=== PATIENT | female | born 1985 | race Caucasian/White ===

== ENCOUNTER 2016-12-12 12:39 | Inpatient (IN) | payer OTHER ==
[2016-12-12 13:50] VITALS: BMI 24.0
--- NOTE | 2016-12-12 14:43 | HP ---
Admission [facility] Chief Complaint: I AM HERE REHAB FROM HEROIN,COCAINE DEPENDENCE DISCHARGE FROM REHAB AT [facility] Allergies/Adverse Reactions: Allergies Allergy/AdvReac Type Severity Reaction Status Date / Time No Known Allergies Allergy Verified 12/12/16 14:28 History of Present Illness: THIS 31 YEARS OLD FEMALE WITH HEROIN AND COCAINE DEPENDENCE FOR REHAB BIPOLAR DISORDER MIGRAINE HEADACHE LONGEST PERIOD OF SOBRIETY 8 MONTHS - Ebola screening Have you traveled outside of the country in the last 21 days: No Have you had contact with anyone from an Ebola affected area: No Have you been sick,other than usual withdrawal symptoms: No - Review of Systems Constitutional: No Symptoms Reported EENT: reports: No Symptoms Reported Respiratory: reports: No Symptoms reported Cardiac: reports: No Symptoms Reported GI: reports: No Symptoms Reported : reports: No Symptoms Reported Musculoskeletal: reports: No Symptoms Reported Integumentary: reports: No Symptoms Reported Neuro: reports: Headache Endocrine: reports: No Symptoms Reported Hematology: reports: No Symptoms Reported Psychiatric: reports: Judgement Intact, Mood/Affect Appropiate, Orientated x3 ( DISORDER), other Patient History - Patient Medical History Hx Anemia: No Hx Asthma: No Hx Chronic Obstructive Pulmonary Disease (COPD): No Hx Cancer: No Hx Cardiac Disorders: No Hx Congestive Heart Failure: No Hx Hypertension: No Hx Hypercholesterolemia: No Hx Pacemaker: No HX Cerebrovascular Accident: No Hx Seizures: No Hx Dementia: No Hx Diabetes: No Hx Gastrointestinal Disorders: No Hx Liver Disease: No Hx Genitourinary Disorders: No Hx Sexually Transmitted Disorders: Yes (Chlamydia at age 16) Hx Renal Disease (ESRD): No Hx Thyroid Disease: No Hx Human Immunodeficiency Virus (HIV): No (LAST 12/05/16 NEGATIVE) Hx Hepatitis C: No Hx Depression: Yes Hx Suicide Attempt: Yes (2015 OVERDOSE) Hx Bipolar Disorder: Yes (AND ANXIETY) Hx Schizophrenia: No Other Medical History: NO SUICIDAL,NO HOMICIDAL - Patient Surgical History Past Surgical History: Yes Hx Neurologic Surgery: No Hx Cataract Extraction: No Hx Cardiac Surgery: No Hx Lung Surgery: No Hx Breast Surgery: No Hx Breast Biopsy: No Hx Abdominal Surgery: No Hx Appendectomy: Yes (WHEN SHE WAS 25 YRS. OLD LAP) Hx Cholecystectomy: No Hx Genitourinary Surgery: No Hx Section: No Hx Orthopedic Surgery: No Anesthesia Reaction: No - PPD History Previous Implant?: Yes Date: 12/08/15 Results: 0mm PPD to be Administered?: Yes - Reproductive History Patient is a Female of Child Bearing Age (11 -55 yrs old): Yes Last Menstrual Period: 09/20/15 Patient : No - Smoking Cessation Smoking history: Current every day smoker Aproximately how many cigarettes per day: 20 Hx Chewing Tobacco Use: No Initiated information on smoking cessation: Yes 'Breaking Loose' booklet given: 12/12/16 - Substance & Tx. History Hx Alcohol Use: No Hx Substance Use: Yes Substance Use Type: Cocaine, Heroin - Substances Abused Crack Route: Smoking Frequency: Daily Amount used: $40-200 Age of first use: 27 Date of Last Use: 11/23/16 Heroin Route: Injection Frequency: 1-3 times last 30 days Amount used: 2 bags Age of first use: 28 Date of Last Use: 11/20/16 Family Disease History - Family Disease History Family Disease History: Heart Disease: Father (HTN,ALCOHOLIC), Mother (HTN, ALCOHOLIC) Admission Physical Exam S - Vital Signs Vital Signs: Vital Signs - 24 hr 12/12/16 13:47 Temperature 97.1 F L Pulse Rate 88 Respiratory 20 Rate Blood Pressure 123/93 - Physical General Appearance: Yes: Within Normal Limits HEENTM: Yes: Normal ENT Inspection, CORIN, Pharynx Normal Respiratory: Yes: Lungs Clear, Normal Breath Sounds, No Respiratory Distress Neck: Yes: Within Normal Limits Breast: Yes: Breast Exam Deferred Cardiology: Yes: Within Normal Limits, Regular Rhythm, Regular Rate, S1, S2 Abdominal: Yes: Within Normal Limits, Normal Bowel Sounds, Non Tender, Flat, Soft Genitourinary: Yes: Within Normal Limits Back: Yes: Within Normal Limits Musculoskeletal: Yes: Within Normal Limits Extremities: Yes: Within Normal Limits, Normal Capillary Refill, Normal Inspection, Normal Range of Motion 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: Yes: 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 intact, Fully Oriented, Alert, Motor Strength 5/5 Integumentary: Yes: Within Normal Limits Lymphatic: Yes: Within Normal Limits - Diagnostic (1) Bipolar disorder Current Visit: No Status: Chronic Qualifiers: Current episode severity: unspecified (2) Cocaine dependence Current Visit: No Status: Chronic Qualifiers: Substance use status: uncomplicated Qualified Code(s): F14.20 - Cocaine dependence, uncomplicated (3) Opioid dependence Current Visit: No Status: Chronic (4) Nicotine dependence Current Visit: Yes Status: Acute Cleared for Admission S - Detox or Rehab Claeared for Rehab Admission: Yes [facility] Breath Alcohol Content Breath Alcohol Content: 0 Urine Pregancy Test - Result Urine Test Results: Negative- NO Line Present Urine Drug Screen - Results Drug Screen Negative: No Urine Drug Screen Results: BZO-Benzodiazepines
[2016-12-12] MEDS ORDERED: guaiFENesin/D-METHORPHAN HB 10 ML UNIT-DOSE CUPS PO PRN (14:54)
[2016-12-12] MEDS ORDERED: MENTHOL/PHENOL 1 EACH UD MM PRN (14:54)
[2016-12-12] MEDS ORDERED: P-EPHED 60MG/TRIPROLIDI 2.5MG TABLET PO PRN (14:54)
[2016-12-12] MEDS ORDERED: MAG HYDROX/AL HYDROX/SIMETH 30 ML UNIT-DOSE CUP PO PRN (14:54)
[2016-12-12] MEDS ORDERED: MAGNESIUM HYDROX 2400MG/30ML ORAL SUSPENSION 30 ML CUP PO PRN (14:54)
[2016-12-12] MEDS ORDERED: LOPERAMIDE HCL 2 MG CAPSULE PO PRN (14:54)
[2016-12-12] MEDS ORDERED: ACETAMINOPHEN 325 MG TABLET (FP) PO PRN (14:54)
[2016-12-12] MEDS ORDERED: MAGNESIUM CITRATE 300 ML BOTTLE PO PRN (14:54)
[2016-12-12] MEDS ORDERED: TUBERCULIN PPD 5 TU/0.1ML VIAL ID ONE (19:12)
[2016-12-12 19:50] LABS: URINE APPEARANCE CLEAR; URINE BILIRUBIN NEGATIVE (NEGATIVE); URINE BLOOD NEGATIVE (NEGATIVE); URINE COLOR STRAW; URINE GLUCOSE (UA) NEGATIVE (NEGATIVE); URINE KETONE NEGATIVE (NEGATIVE); URINE LEUK ESTERASE NEGATIVE (NEGATIVE); URINE NITRITE NEGATIVE (NEGATIVE); URINE PROTEIN NEGATIVE (NEGATIVE); URINE UROBILINOGEN NEGATIVE E.U./dl (0.2-1.0)
[2016-12-12] MEDS: THIAMINE HCL 100 MG TABLET (FP) PO SCH (21:06)
[2016-12-12] MEDS: diphenhydrAMINE HCL 50 MG CAPSULE PO PRN (21:06)
[2016-12-12] MEDS: VARENICLINE TARTRATE 1 MG TAB PO SCH (21:07)
[2016-12-12] MEDS: IBUPROFEN 400 MG TABLET (FP) PO PRN (21:08)
--- NOTE | 2016-12-13 09:53 | HP ---
Psychiatrist Admission - Data Date of interview: 12/13/16 Admission source: [facility] Identifying data: This is the second admission to [address] [place] [address] for this 31 years old single female childless,residing with parents,unemploeyed,supported by parents. Medical History: unremarkable Psychiatric History: Patient was dx with Bipolar disorder at 22 yo ,started on Depakote 500 mg po bid,Lexapro 20 mg po daily,Xanax 0,5 mg po prn.Reports 1 psychiatric hospitalization in 2014 to [facility] due to DOD.She sees at [facility] on a monthly basis.Last visit was in October 2016 then she was arrested and spent 2 weeks in intermediate.Current medications:Depakote 500 mg po am and 750 mg po hsm,Lexapro 20 mg po daily and Melatonin 10 mg po hs. Physical/Sexual Abuse/Trauma History: denies Vital Signs: Vital Signs - 24 hr 12/12/16 12/12/16 12/13/16 13:47 21:58 00:41 Temperature 97.1 F L 98.1 F Pulse Rate 88 84 Respiratory 20 20 16 Rate Blood Pressure 123/93 145/81 12/13/16 12/13/16 03:30 07:06 Temperature 98.4 F Pulse Rate 76 Respiratory 18 18 Rate Blood Pressure 134/77 Allergies/Adverse Reactions: Allergies Allergy/AdvReac Type Severity Reaction Status Date / Time No Known Allergies Allergy Verified 12/12/16 14:28 Date of last physical exam: 12/12/16 Concur with the findings of this exam: Yes - Substance Abuse/Tx History Hx Alcohol Use: Yes (on and off) Hx Substance Use: Yes (reports heroin since 28 yo,cocaine since 16 ,crack since 27 ,IV cocaine 29 ) Substance Use Type: Alcohol, Cocaine, Heroin Hx Substance Use Treatment: Yes (completed this program in February 2016) - Admission Criteria Previous failed treatment: Yes Poor recovery environment: Yes Comorbidities: Yes Lacks judgement: Yes Mental Status Exam - Mental Status Exam Alert and Oriented to: Time, Place, Person Cognitive Function: Grossly Intact Patient Appearance: Unkempt Mood: Sad Affect: Mood Congruent, Labile Patient Behavior: Cooperative Speech Pattern: Clear Voice Loudness: Normal Thought Process: Goal Oriented Thought Disorder: Not Present Hallucinations: Denies Suicidal Ideation: Denies Homicidal Ideation: Denies Insight/Judgement: Fair Sleep: Fair Appetite: Good Muscle strength/Tone: Normal Gait/Station: Normal Psychiatric Findings - Problem List ([place] 1, 2,3) (1) Nicotine dependence Current Visit: Yes Status: Chronic (2) Benzodiazepine dependence Current Visit: Yes Status: Chronic (3) Bipolar II disorder Current Visit: Yes Status: Chronic (4) Cannabis dependence Current Visit: Yes Status: Chronic (5) Chronic alcoholism Current Visit: Yes Status: Chronic Qualifiers: Substance use status: in withdrawal (6) Opioid dependence Current Visit: Yes Status: Chronic (7) Cocaine dependence Current Visit: Yes Status: Chronic Qualifiers: Substance use status: uncomplicated Qualified Code(s): F14.20 - Cocaine dependence, uncomplicated - Initial Treatment Plan Initial Treatment Plan: Continue Lexapro 20 mg po daily,Depakote 500 mg po am and 750 mg po hs,Melatonon 10 mg po hs.
[2016-12-13] MEDS: PRENATAL VITAMINS W/ FOLIC ACID TABLET (FP) PO SCH (10:04)
[2016-12-13] MEDS: VARENICLINE TARTRATE 1 MG TAB PO SCH ×2 (10:04→21:20)
[2016-12-13] MEDS: IBUPROFEN 400 MG TABLET (FP) PO PRN (10:06)
[2016-12-13 10:40] LABS: ALBUMIN 3.7 g/dl (3.4-5.0); ANION GAP 6 (8-16); CALCIUM 9.2 mg/dL (8.5-10.1); CO2 31 mmol/L (21-32); GLUCOSE,RANDOM 90 mg/dL (74-106)
[2016-12-13 10:47] LABS: ALK PHOS 59 U/L (45-117); BILIRUBIN,TOTAL 0.7 mg/dL (0.2-1.0); CREATININE 0.6 mg/dL (0.55-1.02); SGOT/AST 12 U/L (15-37); SGPT/ALT 18 U/L (12-78); TOT PROT 6.5 g/dl (6.4-8.2)
[2016-12-13 10:50] LABS: MCH 30.7 pg (25.7-33.7); MCHC 34.5 g/dl (32.0-36.0); MEAN CELL VOLUME 89.1 fl (80-96); MEAN PLT VOLUME 10.2 fl (7.5-11.1); PLATELET COUNT 142 K/MM3 (134-434); RDW 13.1 % (11.6-15.6); WHITE BLOOD COUNT 9.2 K/mm3 (4.0-10.0)
--- NOTE | 2016-12-13 13:12 | EKG ---
Test Reason : Blood Pressure : / mmHG Vent. Rate : 077 BPM Atrial Rate : 077 BPM P-R Int : 142 ms QRS Dur : 082 ms QT Int : 378 ms P-R-T Axes : 000 112 187 degrees QTc Int : 427 ms NORMAL SINUS RHYTHM POSSIBLE INFERIOR INFARCT , AGE UNDETERMINED ANTEROLATERAL INFARCT , AGE UNDETERMINED ABNORMAL ECG NO PREVIOUS ECGS AVAILABLE Confirmed by DAWSON DAN MD ([id number]) on 12/13/2016 1:12:09 PM Referred By: Confirmed By:DAWSON DAN MD
[2016-12-13] MEDS: ESCITALOPRAM OXALATE 20 MG TABLET (FP) PO SCH (15:22)
[2016-12-13] MEDS ORDERED: PT OWN MED DRAWER 7, Y5N ONE ×3 (19:13→22:53)
[2016-12-13] MEDS: DIVALPROEX SODIUM 250 MG TABLET E.C. (FP) PO SCH (21:18)
[2016-12-13] MEDS: THIAMINE HCL 100 MG TABLET (FP) PO SCH (21:19)
[2016-12-13] MEDS: diphenhydrAMINE HCL 50 MG CAPSULE PO PRN (21:19)
[2016-12-13] MEDS: MELATONIN 5 MG TABLETS PO SCH (21:20)
[2016-12-14] MEDS: DIVALPROEX SODIUM 500 MG TABLET E.C. PO SCH (06:31)
[2016-12-14] MEDS ORDERED: PT OWN MED DRAWER 7, Y5N ONE ×4 (08:33→21:08)
[2016-12-14] MEDS: ESCITALOPRAM OXALATE 20 MG TABLET (FP) PO SCH (10:06)
[2016-12-14] MEDS: VARENICLINE TARTRATE 1 MG TAB PO SCH ×2 (10:06→21:10)
[2016-12-14] MEDS: PRENATAL VITAMINS W/ FOLIC ACID TABLET (FP) PO SCH (10:06)
[2016-12-14] MEDS: IBUPROFEN 400 MG TABLET (FP) PO PRN (10:07)
[2016-12-14] MEDS: hydrOXYzine PAMOATE 50 MG CAPSULE (FP) PO PRN ×2 (15:06→21:09)
[2016-12-14] MEDS: COLLOIDAL OATMEAL 1 BAR EACH TP PRN (15:07)
[2016-12-14] MEDS: THIAMINE HCL 100 MG TABLET (FP) PO SCH (21:08)
[2016-12-14] MEDS: MELATONIN 5 MG TABLETS PO SCH (21:09)
[2016-12-14] MEDS: DIVALPROEX SODIUM 250 MG TABLET E.C. (FP) PO SCH (23:32)
[2016-12-15] MEDS ORDERED: PT OWN MED DRAWER 7, Y5N ONE ×4 (00:14→19:26)
[2016-12-15] MEDS: DIVALPROEX SODIUM 500 MG TABLET E.C. PO SCH (06:44)
[2016-12-15] MEDS: PRENATAL VITAMINS W/ FOLIC ACID TABLET (FP) PO SCH (09:49)
[2016-12-15] MEDS: ESCITALOPRAM OXALATE 20 MG TABLET (FP) PO SCH (09:49)
[2016-12-15] MEDS: NICOTINE POLACRILEX 2 MG GUM BC PRN ×2 (09:51→18:02)
[2016-12-15] MEDS: VARENICLINE TARTRATE 1 MG TAB PO SCH ×2 (10:06→21:13)
[2016-12-15] MEDS: SUMAtriptan SUCCINATE 25 MG TABLET PO PRN (13:05)
[2016-12-15] MEDS: hydrOXYzine PAMOATE 50 MG CAPSULE (FP) PO PRN (18:28)
[2016-12-15] MEDS: diphenhydrAMINE HCL 50 MG CAPSULE PO PRN (21:12)
[2016-12-15] MEDS: DIVALPROEX SODIUM 250 MG TABLET E.C. (FP) PO SCH (21:12)
[2016-12-15] MEDS: MELATONIN 5 MG TABLETS PO SCH (21:13)
[2016-12-15] MEDS: THIAMINE HCL 100 MG TABLET (FP) PO SCH (21:13)
[2016-12-16] MEDS: hydrOXYzine PAMOATE 50 MG CAPSULE (FP) PO PRN ×2 (06:23→12:57)
[2016-12-16] MEDS ORDERED: PT OWN MED DRAWER 7, Y5N ONE ×3 (08:00→19:05)
[2016-12-16] MEDS: VARENICLINE TARTRATE 1 MG TAB PO SCH ×2 (09:29→21:03)
[2016-12-16] MEDS: PRENATAL VITAMINS W/ FOLIC ACID TABLET (FP) PO SCH (09:29)
[2016-12-16] MEDS: ESCITALOPRAM OXALATE 20 MG TABLET (FP) PO SCH (09:29)
[2016-12-16] MEDS: NICOTINE POLACRILEX 2 MG GUM BC PRN ×4 (09:31→21:05)
[2016-12-16] MEDS: DIVALPROEX SODIUM 500 MG TABLET E.C. PO SCH (09:31)
[2016-12-16] MEDS: SUMAtriptan SUCCINATE 25 MG TABLET PO PRN (12:59)
[2016-12-16] MEDS: MELATONIN 5 MG TABLETS PO SCH (21:03)
[2016-12-16] MEDS: THIAMINE HCL 100 MG TABLET (FP) PO SCH (21:04)
[2016-12-16] MEDS: DIVALPROEX SODIUM 250 MG TABLET E.C. (FP) PO SCH (21:04)
[2016-12-17] MEDS ORDERED: PT OWN MED DRAWER 7, Y5N ONE ×2 (08:06→17:59)
[2016-12-17] MEDS: VARENICLINE TARTRATE 1 MG TAB PO SCH ×2 (09:37→21:15)
[2016-12-17] MEDS: PRENATAL VITAMINS W/ FOLIC ACID TABLET (FP) PO SCH (09:37)
[2016-12-17] MEDS: ESCITALOPRAM OXALATE 20 MG TABLET (FP) PO SCH (09:37)
[2016-12-17] MEDS: DIVALPROEX SODIUM 500 MG TABLET E.C. PO SCH (09:37)
[2016-12-17] MEDS: NICOTINE POLACRILEX 2 MG GUM BC PRN ×3 (09:38→21:15)
[2016-12-17] MEDS: hydrOXYzine PAMOATE 50 MG CAPSULE (FP) PO PRN (11:41)
[2016-12-17] MEDS: IBUPROFEN 400 MG TABLET (FP) PO PRN (11:41)
[2016-12-17] MEDS: THIAMINE HCL 100 MG TABLET (FP) PO SCH (21:13)
[2016-12-17] MEDS: DIVALPROEX SODIUM 250 MG TABLET E.C. (FP) PO SCH (21:13)
[2016-12-17] MEDS: MELATONIN 5 MG TABLETS PO SCH (21:14)
[2016-12-17] MEDS: diphenhydrAMINE HCL 50 MG CAPSULE PO PRN (21:15)
[2016-12-18] MEDS ORDERED: PT OWN MED DRAWER 7, Y5N ONE ×2 (08:27→19:33)
[2016-12-18] MEDS: VARENICLINE TARTRATE 1 MG TAB PO SCH ×2 (09:01→21:15)
[2016-12-18] MEDS: PRENATAL VITAMINS W/ FOLIC ACID TABLET (FP) PO SCH (09:01)
[2016-12-18] MEDS: ESCITALOPRAM OXALATE 20 MG TABLET (FP) PO SCH (09:01)
[2016-12-18] MEDS: NICOTINE POLACRILEX 2 MG GUM BC PRN ×3 (09:01→21:16)
[2016-12-18] MEDS: DIVALPROEX SODIUM 500 MG TABLET E.C. PO SCH (09:01)
--- NOTE | 2016-12-18 09:56 | PN ---
Psychiatric Progress Note Vital Signs: Vital Signs Period Temp Pulse Resp BP Sys/Malagon Pulse Ox Last 24 Hr 98.6 F 88 18-18 136/88 Date of Session: 12/18/16 Chief Complaint:: Rhona anxious ,still craving,I feel like rhona going to sign out. HPI: Patient addressed Opioid,Cocaine,Benzo and Alcohol dependence comorbid with Bipolar II Disorder. ROS: unremarkable Current Medications: Active Medications Generic Name Dose Route Start Last Admin Trade Name Freq PRN Reason Stop Dose Admin Acetaminophen 650 mg 12/12/16 14:54 Tylenol - PO Q4H PRN PAIN Al Hydroxide/Mg Hydroxide 30 ml 12/12/16 14:54 Mylanta Oral Suspension - PO Q6H PRN DYSPEPSIA Colloidal Oatmeal 1 applic 12/14/16 14:39 12/14/16 15:07 Aveeno Soap - TP 1 applic DAILY PRN Administration HYGEINE Diphenhydramine HCl 50 mg 12/12/16 14:54 12/17/16 21:15 Benadryl - PO 50 mg HSMR1 PRN Administration INSOMNIA Divalproex Sodium 750 mg 12/13/16 22:00 12/17/16 21:13 Depakote - PO 750 mg HS LAURA Administration Divalproex Sodium 500 mg 12/16/16 10:00 12/18/16 09:01 Depakote - PO 500 mg DAILY LAURA Administration Escitalopram Oxalate 20 mg 12/13/16 13:45 12/18/16 09:01 Lexapro - PO 20 mg DAILY LAURA Administration Eucalyptus/Menthol/Phenol/Sorbitol 1 each 12/12/16 14:54 Cepastat Lozenge - MM Q4H PRN SORE THROAT Guaifenesin 10 ml 12/12/16 14:54 Robitussin Dm - PO Q6H PRN COUGH Hydroxyzine Pamoate 50 mg 12/12/16 14:54 12/17/16 11:41 Vistaril - PO 50 mg Q4H PRN Administration AGITATION Ibuprofen 400 mg 12/12/16 14:54 12/17/16 11:41 Motrin - PO 400 mg Q6H PRN Administration SEVERE PAIN Loperamide HCl 4 mg 12/12/16 14:54 Imodium - PO Q6H PRN DIARRHEA Magnesium Citrate 300 ml 12/12/16 14:54 Citroma - PO Q48H PRN CONSTIPATION Magnesium Hydroxide 30 ml 12/12/16 14:54 Milk Of Magnesia - PO DAILY PRN CONSTIPATION Melatonin 10 mg 12/13/16 22:00 12/17/16 21:14 Melatonin PO 10 mg HS LAURA Administration Nicotine Polacrilex 2 mg 12/12/16 14:54 12/18/16 09:01 Nicorette Gum - BC 2 mg Q2H PRN Administration NICOTINE REPLACEMENT RX Multivit/Folic Acid/Iron 1 tab 12/13/16 10:00 12/18/16 09:01 Vitamins (Sjr) - PO 1 tab DAILY LAURA Administration Pseudoephedrine/Triprolidine 1 combo 12/12/16 14:54 Actifed - PO TID PRN NASAL CONGESTION Quetiapine Fumarate 25 mg 12/18/16 14:00 Seroquel - PO TID LAURA Sumatriptan Succinate 25 mg 12/12/16 14:57 12/16/16 12:59 Imitrex - PO 25 mg DAILY PRN Administration HEADACHE Thiamine HCl 100 mg 12/12/16 22:00 12/17/16 21:13 Vitamin B1 - PO 100 mg HS LAURA Administration Varenicline 1 mg 12/12/16 22:00 12/18/16 09:01 Chantix - PO 1 mg BID LAURA Administration Current Side Effect: No Lab tests ordered: No Lab tests reviewed: Yes Provider note:: Chart was revuewed,patient was seen.She addressed ongoing anxiety,episodes of craving,sensitivity,crying spells,easily frustrationCurrent medications has been discussed with the patient.She agrees to start Seroquel 25 mgpo tid ,properties if which has been discussed as well including side effects, benefits and dose adjustment. Seroquel 25 mg po tid will be started today. Supportive therapy provided. Total face to face time:: 30 Mental Status Exam - Mental Status Exam Alert and Oriented to: Time, Place, Person Cognitive Function: Grossly Intact Patient Appearance: Unkempt Mood: Apprehensive, Irritable Affect: Mood Congruent, Labile Patient Behavior: Crying, Restless, Cooperative Speech Pattern: Clear Voice Loudness: Mildly Loud Thought Process: Goal Oriented Thought Disorder: Not Present Hallucinations: Denies Suicidal Ideation: Denies Homicidal Ideation: Denies Insight/Judgement: Fair Sleep: Fair Appetite: Good Muscle strength/Tone: Normal Gait/Station: Normal Psychiatric Treatment Plan - Problem List (1) Nicotine dependence Current Visit: Yes (2) Benzodiazepine dependence Current Visit: Yes (3) Bipolar II disorder Current Visit: Yes (4) Cannabis dependence Current Visit: Yes (5) Chronic alcoholism Current Visit: Yes Qualifiers: Substance use status: in withdrawal (6) Opioid dependence Current Visit: Yes (7) Cocaine dependence Current Visit: Yes Qualifiers: Substance use status: uncomplicated Qualified Code(s): F14.20 - Cocaine dependence, uncomplicated
[2016-12-18] MEDS: hydrOXYzine PAMOATE 50 MG CAPSULE (FP) PO PRN (10:04)
[2016-12-18] MEDS ORDERED: QUEtiapine FUMARATE 25 MG TABLET (FP) PO STA (10:12)
[2016-12-18] MEDS: QUEtiapine FUMARATE 25 MG TABLET (FP) PO SCH ×2 (13:07→21:13)
[2016-12-18] MEDS: THIAMINE HCL 100 MG TABLET (FP) PO SCH (21:12)
[2016-12-18] MEDS: DIVALPROEX SODIUM 250 MG TABLET E.C. (FP) PO SCH (21:13)
[2016-12-18] MEDS: IBUPROFEN 400 MG TABLET (FP) PO PRN (21:14)
[2016-12-18] MEDS: MELATONIN 5 MG TABLETS PO SCH (21:15)
[2016-12-19] MEDS: QUEtiapine FUMARATE 25 MG TABLET (FP) PO SCH ×3 (06:16→22:20)
[2016-12-19] MEDS ORDERED: PT OWN MED DRAWER 7, Y5N ONE ×3 (08:39→22:47)
[2016-12-19] MEDS: VARENICLINE TARTRATE 1 MG TAB PO SCH ×2 (09:59→21:19)
[2016-12-19] MEDS: PRENATAL VITAMINS W/ FOLIC ACID TABLET (FP) PO SCH (09:59)
[2016-12-19] MEDS: DIVALPROEX SODIUM 500 MG TABLET E.C. PO SCH (09:59)
[2016-12-19] MEDS: ESCITALOPRAM OXALATE 20 MG TABLET (FP) PO SCH (09:59)
[2016-12-19] MEDS: NICOTINE POLACRILEX 2 MG GUM BC PRN ×2 (10:00→21:21)
[2016-12-19] MEDS: IBUPROFEN 400 MG TABLET (FP) PO PRN (21:19)
[2016-12-19] MEDS: DIVALPROEX SODIUM 250 MG TABLET E.C. (FP) PO SCH (21:19)
[2016-12-19] MEDS: MELATONIN 5 MG TABLETS PO SCH (21:20)
[2016-12-19] MEDS: THIAMINE HCL 100 MG TABLET (FP) PO SCH (21:20)
[2016-12-20] MEDS: QUEtiapine FUMARATE 25 MG TABLET (FP) PO SCH ×3 (06:55→21:12)
[2016-12-20] MEDS: NICOTINE POLACRILEX 2 MG GUM BC PRN (09:45)
[2016-12-20] MEDS: VARENICLINE TARTRATE 1 MG TAB PO SCH ×2 (09:46→21:11)
[2016-12-20] MEDS: PRENATAL VITAMINS W/ FOLIC ACID TABLET (FP) PO SCH (09:46)
[2016-12-20] MEDS: DIVALPROEX SODIUM 500 MG TABLET E.C. PO SCH (09:46)
[2016-12-20] MEDS: ESCITALOPRAM OXALATE 20 MG TABLET (FP) PO SCH (09:46)
[2016-12-20] MEDS: IBUPROFEN 400 MG TABLET (FP) PO PRN (13:28)
[2016-12-20] MEDS: DIVALPROEX SODIUM 250 MG TABLET E.C. (FP) PO SCH (21:10)
[2016-12-20] MEDS: THIAMINE HCL 100 MG TABLET (FP) PO SCH (21:10)
[2016-12-20] MEDS: MELATONIN 5 MG TABLETS PO SCH (21:11)
[2016-12-20] MEDS ORDERED: PT OWN MED DRAWER 7, Y5N ONE (23:19)
[2016-12-21] MEDS: QUEtiapine FUMARATE 25 MG TABLET (FP) PO SCH ×3 (06:26→21:15)
[2016-12-21] MEDS: IBUPROFEN 400 MG TABLET (FP) PO PRN (10:00)
[2016-12-21] MEDS: hydrOXYzine PAMOATE 50 MG CAPSULE (FP) PO PRN (10:00)
[2016-12-21] MEDS: VARENICLINE TARTRATE 1 MG TAB PO SCH ×2 (10:01→21:13)
[2016-12-21] MEDS: PRENATAL VITAMINS W/ FOLIC ACID TABLET (FP) PO SCH (10:01)
[2016-12-21] MEDS: NICOTINE POLACRILEX 2 MG GUM BC PRN ×2 (10:01→21:15)
[2016-12-21] MEDS: ESCITALOPRAM OXALATE 20 MG TABLET (FP) PO SCH (10:01)
[2016-12-21] MEDS: DIVALPROEX SODIUM 500 MG TABLET E.C. PO SCH (10:01)
[2016-12-21] MEDS: DIVALPROEX SODIUM 250 MG TABLET E.C. (FP) PO SCH (21:13)
[2016-12-21] MEDS: THIAMINE HCL 100 MG TABLET (FP) PO SCH (21:13)
[2016-12-21] MEDS: MELATONIN 5 MG TABLETS PO SCH (21:14)
[2016-12-22] MEDS: QUEtiapine FUMARATE 25 MG TABLET (FP) PO SCH ×3 (06:31→21:15)
[2016-12-22] MEDS: DIVALPROEX SODIUM 500 MG TABLET E.C. PO SCH (09:54)
[2016-12-22] MEDS: PRENATAL VITAMINS W/ FOLIC ACID TABLET (FP) PO SCH (09:54)
[2016-12-22] MEDS: VARENICLINE TARTRATE 1 MG TAB PO SCH ×2 (09:54→21:14)
[2016-12-22] MEDS: ESCITALOPRAM OXALATE 20 MG TABLET (FP) PO SCH (09:54)
[2016-12-22] MEDS: NICOTINE POLACRILEX 2 MG GUM BC PRN ×4 (09:55→21:15)
[2016-12-22] MEDS: hydrOXYzine PAMOATE 50 MG CAPSULE (FP) PO PRN (12:38)
[2016-12-22] MEDS ORDERED: PT OWN MED DRAWER 7, Y5N ONE (19:08)
[2016-12-22] MEDS: MELATONIN 5 MG TABLETS PO SCH (21:14)
[2016-12-22] MEDS: DIVALPROEX SODIUM 250 MG TABLET E.C. (FP) PO SCH (21:14)
[2016-12-22] MEDS: IBUPROFEN 400 MG TABLET (FP) PO PRN (21:15)
[2016-12-22] MEDS: THIAMINE HCL 100 MG TABLET (FP) PO SCH (21:15)
[2016-12-23] MEDS: QUEtiapine FUMARATE 25 MG TABLET (FP) PO SCH ×3 (06:36→21:11)
[2016-12-23] MEDS: PRENATAL VITAMINS W/ FOLIC ACID TABLET (FP) PO SCH (09:50)
[2016-12-23] MEDS: VARENICLINE TARTRATE 1 MG TAB PO SCH ×2 (09:50→21:09)
[2016-12-23] MEDS: ESCITALOPRAM OXALATE 20 MG TABLET (FP) PO SCH (09:51)
[2016-12-23] MEDS: DIVALPROEX SODIUM 500 MG TABLET E.C. PO SCH (09:51)
[2016-12-23] MEDS: NICOTINE POLACRILEX 2 MG GUM BC PRN (13:11)
[2016-12-23] MEDS ORDERED: PT OWN MED DRAWER 7, Y5N ONE ×2 (21:08→23:16)
[2016-12-23] MEDS: THIAMINE HCL 100 MG TABLET (FP) PO SCH (21:09)
[2016-12-23] MEDS: DIVALPROEX SODIUM 250 MG TABLET E.C. (FP) PO SCH (21:09)
[2016-12-23] MEDS: MELATONIN 5 MG TABLETS PO SCH (21:11)
[2016-12-24] MEDS: QUEtiapine FUMARATE 25 MG TABLET (FP) PO SCH ×3 (06:16→21:10)
[2016-12-24] MEDS: VARENICLINE TARTRATE 1 MG TAB PO SCH ×2 (09:46→21:09)
[2016-12-24] MEDS: PRENATAL VITAMINS W/ FOLIC ACID TABLET (FP) PO SCH (09:46)
[2016-12-24] MEDS: ESCITALOPRAM OXALATE 20 MG TABLET (FP) PO SCH (09:47)
[2016-12-24] MEDS: DIVALPROEX SODIUM 500 MG TABLET E.C. PO SCH (09:47)
[2016-12-24] MEDS: COLLOIDAL OATMEAL 1 BAR EACH TP PRN (13:19)
[2016-12-24] MEDS: DIVALPROEX SODIUM 250 MG TABLET E.C. (FP) PO SCH (21:09)
[2016-12-24] MEDS: THIAMINE HCL 100 MG TABLET (FP) PO SCH (21:10)
[2016-12-24] MEDS ORDERED: PT OWN MED DRAWER 7, Y5N ONE (21:11)
[2016-12-24] MEDS: diphenhydrAMINE HCL 50 MG CAPSULE PO PRN (21:11)
[2016-12-24] MEDS: MELATONIN 5 MG TABLETS PO SCH (21:12)
[2016-12-24] MEDS: NICOTINE POLACRILEX 2 MG GUM BC PRN (21:12)
[2016-12-25] MEDS: QUEtiapine FUMARATE 25 MG TABLET (FP) PO SCH ×3 (06:23→21:04)
[2016-12-25] MEDS ORDERED: PT OWN MED DRAWER 7, Y5N ONE ×2 (08:26→22:17)
[2016-12-25] MEDS: ESCITALOPRAM OXALATE 20 MG TABLET (FP) PO SCH (09:43)
[2016-12-25] MEDS: PRENATAL VITAMINS W/ FOLIC ACID TABLET (FP) PO SCH (09:43)
[2016-12-25] MEDS: DIVALPROEX SODIUM 500 MG TABLET E.C. PO SCH (09:43)
[2016-12-25] MEDS: VARENICLINE TARTRATE 1 MG TAB PO SCH ×2 (09:43→21:02)
[2016-12-25] MEDS: SUMAtriptan SUCCINATE 25 MG TABLET PO PRN (09:45)
[2016-12-25] MEDS: NICOTINE POLACRILEX 2 MG GUM BC PRN ×3 (09:45→21:04)
--- NOTE | 2016-12-25 15:06 | PN ---
Psychiatric Progress Note Vital Signs: Vital Signs Period Temp Pulse Resp BP Sys/Malagon Pulse Ox Last 24 Hr 97.8 F 82 16-18 110/71 Date of Session: 12/25/16 Chief Complaint:: Discharge visit HPI: Patient addressed Alcohol,Cocaine,Opioid,Cannabis and Anxiolytic dependence comorbid with BIpolar disorder. ROS: unremarkable Current Medications: Active Medications Generic Name Dose Route Start Last Admin Trade Name Freq PRN Reason Stop Dose Admin Acetaminophen 650 mg 12/12/16 14:54 Tylenol - PO Q4H PRN PAIN Al Hydroxide/Mg Hydroxide 30 ml 12/12/16 14:54 Mylanta Oral Suspension - PO Q6H PRN DYSPEPSIA Colloidal Oatmeal 1 applic 12/14/16 14:39 12/24/16 13:19 Aveeno Soap - TP 1 applic DAILY PRN Administration HYGEINE Diphenhydramine HCl 50 mg 12/12/16 14:54 12/24/16 21:11 Benadryl - PO 50 mg HSMR1 PRN Administration INSOMNIA Divalproex Sodium 750 mg 12/13/16 22:00 12/24/16 21:09 Depakote - PO 750 mg HS LAURA Administration Divalproex Sodium 500 mg 12/16/16 10:00 12/25/16 09:43 Depakote - PO 500 mg DAILY LAURA Administration Escitalopram Oxalate 20 mg 12/13/16 13:45 12/25/16 09:43 Lexapro - PO 20 mg DAILY LAURA Administration Eucalyptus/Menthol/Phenol/Sorbitol 1 each 12/12/16 14:54 Cepastat Lozenge - MM Q4H PRN SORE THROAT Guaifenesin 10 ml 12/12/16 14:54 Robitussin Dm - PO Q6H PRN COUGH Hydroxyzine Pamoate 50 mg 12/12/16 14:54 12/22/16 12:38 Vistaril - PO 50 mg Q4H PRN Administration AGITATION Ibuprofen 400 mg 12/12/16 14:54 12/22/16 21:15 Motrin - PO 400 mg Q6H PRN Administration SEVERE PAIN Loperamide HCl 4 mg 12/12/16 14:54 Imodium - PO Q6H PRN DIARRHEA Magnesium Citrate 300 ml 12/12/16 14:54 Citroma - PO Q48H PRN CONSTIPATION Magnesium Hydroxide 30 ml 12/12/16 14:54 Milk Of Magnesia - PO DAILY PRN CONSTIPATION Melatonin 10 mg 12/13/16 22:00 12/24/16 21:12 Melatonin PO 10 mg HS LAURA Administration Nicotine Polacrilex 2 mg 12/12/16 14:54 12/25/16 09:45 Nicorette Gum - BC 2 mg Q2H PRN Administration NICOTINE REPLACEMENT RX Multivit/Folic Acid/Iron 1 tab 12/13/16 10:00 12/25/16 09:43 Vitamins (Sjr) - PO 1 tab DAILY LAURA Administration Pseudoephedrine/Triprolidine 1 combo 12/12/16 14:54 Actifed - PO TID PRN NASAL CONGESTION Quetiapine Fumarate 25 mg 12/18/16 14:00 12/25/16 13:07 Seroquel - PO 25 mg TID LAURA Administration Sumatriptan Succinate 25 mg 12/12/16 14:57 12/25/16 09:45 Imitrex - PO 25 mg DAILY PRN Administration HEADACHE Thiamine HCl 100 mg 12/12/16 22:00 12/24/16 21:10 Vitamin B1 - PO 100 mg HS LAURA Administration Varenicline 1 mg 12/12/16 22:00 12/25/16 09:43 Chantix - PO 1 mg BID LAURA Administration Current Side Effect: No Lab tests ordered: No Lab tests reviewed: Yes Provider note:: Patient will complete this program tomorrow 12/26/16.She has met her treatment goals and brigid continue to addres her issues on outpatient basis at [facility].Patient will continue psychotropic medications as per plan:Depakote 500 mg po am and 750 mg po hs,Lexapro 20 mg po daily and Serqouel 25 mg po tid.Scripts for 30 days supply provided. Patient identifies areas of difficulties as well as behaviors trigger to relapse.Coping skills,support system has been discussed with the patient to maintain recovery. Supportive therapy provided. patient is stable for discharge tomorrow. Total face to face time:: 35 Mental Status Exam - Mental Status Exam Alert and Oriented to: Time, Place, Person Cognitive Function: Grossly Intact Patient Appearance: Well Groomed Mood: Anxious, Hopeful Affect: Mood Congruent Patient Behavior: Cooperative Speech Pattern: Clear Voice Loudness: Normal Thought Process: Goal Oriented Thought Disorder: Not Present Hallucinations: Denies Suicidal Ideation: Denies Homicidal Ideation: Denies Insight/Judgement: Fair Sleep: Fair Appetite: Good Muscle strength/Tone: Normal Gait/Station: Normal Psychiatric Treatment Plan - Problem List (5) Chronic alcoholism Qualifiers: Substance use status: in withdrawal (7) Cocaine dependence Qualifiers: Substance use status: uncomplicated Qualified Code(s): F14.20 - Cocaine dependence, uncomplicated
[2016-12-25] MEDS: THIAMINE HCL 100 MG TABLET (FP) PO SCH (21:02)
[2016-12-25] MEDS: DIVALPROEX SODIUM 250 MG TABLET E.C. (FP) PO SCH (21:02)
[2016-12-25] MEDS: MELATONIN 5 MG TABLETS PO SCH (21:03)
[2016-12-26] MEDS: QUEtiapine FUMARATE 25 MG TABLET (FP) PO SCH (06:17)
[2016-12-26 07:00] VITALS: BP 114/77; PULSE 92; TEMP 98.6
== END 2016-12-26 06:45 | disposition home or self-care (01) | DRG 772 ==
LOC: YASAS 12:39 → Y3E 14:45
PROVIDERS: ADMIT Psychiatry & Neurology Psychiatry; ATTEND Psychiatry & Neurology Psychiatry
PROC: HZ42ZZZ Group Counseling for Substance Abuse Treatment, Cognitive-Behavioral (ICD-10-PCS; principal; 2016-12-26)
DX: F14.20 Cocaine dependence, uncomplicated (principal); F13.230 Sedative, hypnotic or anxiolytic dependence with withdrawal, uncomplicated; F10.230 Alcohol dependence with withdrawal, uncomplicated; F12.20 Cannabis dependence, uncomplicated; F17.210 Nicotine dependence, cigarettes, uncomplicated; F31.81 Bipolar II disorder
CPT/HCPCS: 36415; 80053; 81003; 85027; 86593; 93005; 93010